=== PATIENT | male | born 1955 | race Caucasian/White ===

== ENCOUNTER 2021-11-25 09:05 | Outpatient (CLI) | payer OTHER ==
[~2021-11-25] VITALS: Ht 182.9 cm; Wt 122.5 kg
[2021-11-25] MEDS ORDERED: albuterol 2.5 MG/3 ML nebule NEB ONE (09:40)
== END 2021-11-25 23:59 | disposition home or self-care (01) ==
LOC: RT 09:05
PROVIDERS: ATTEND Chiropractor
DX: Q25.46 Tortuous aortic arch (principal); I70.0 Atherosclerosis of aorta; J98.4 Other disorders of lung; R94.2 Abnormal results of pulmonary function studies; J61 Pneumoconiosis due to asbestos and other mineral fibers; M47.814 Spondylosis without myelopathy or radiculopathy, thoracic region; M19.011 Primary osteoarthritis, right shoulder; M19.012 Primary osteoarthritis, left shoulder; Z87.891 Personal history of nicotine dependence; Z79.899 Other long term (current) drug therapy
CPT/HCPCS: 71046; 94060; 94760

== ENCOUNTER 2023-12-23 13:16 | Emergency (ER) | payer OTHER, MEDICARE ==
[~2023-12-23] VITALS: Ht 180.3 cm; Wt 119.9 kg
[2023-12-23 13:17] VITALS: TEMP 98.6
[2023-12-23] MEDS ORDERED: CEPH-585 PO (15:30)
[2023-12-23] MEDS: cephalexin 250mg capsule PO ONE (16:01)
[2023-12-23] MEDS: LIDOcaine 1% W/epiNEPHrine 1:100,000 20ml vial IJ ONE (16:01)
[2023-12-23 16:06] VITALS: BP 142/67; PULSE 68; RESP 16; O2SAT 96
== END 2023-12-23 16:09 | disposition home or self-care (01) ==
LOC: ER 13:16
DX: S81.812A Laceration without foreign body, left lower leg, initial encounter (principal); Z79.2 Long term (current) use of antibiotics; W18.39XA Other fall on same level, initial encounter; Y93.89 Activity, other specified; Y92.89 Other specified places as the place of occurrence of the external cause; Y99.8 Other external cause status
CPT/HCPCS: 12002; 73590; 99283; J3490